=== PATIENT | female | born 1965 | race Caucasian/White ===

== ENCOUNTER → 2017-08-21 | Outpatient (CLI) | payer MEDICAID ==
[~2017-08-21] MED LIST: AMOX/CLAV POT 81 TAB PO; ATENOLOL25 M1 PO; DARVOCET-N 1001 EACH PO; DIPROLENE AF0.05% TP; DURAGESIC 50MC50 MCG TD; DURAGESIC100 MCG/HR TD; FIORINAL 325 MG1 TAB PO; HYDROCHLOROTHIA25 M1 PO; KEFLEX 500MG.500 MG PO; LISINOPRIL 20MG20 MG PO; METHADONE10 MG PO; METOPROLOL25 MG PO; MULTIVITAMIN1 TA1 PO; NAPROSYN 375MG375 MG PO; NITROGLYCERIN0.4 MG SL; NORVASC 10MG. T10 MG PO; OMEPRAZOLE20 MG PO; OXYCODONE5 MG PO; OXYCONTIN 10MG10 MG PO; Oxycodone5 MG NG; Oxycodone5 MG PO; PROAIR HFA0.09 MG/AC IH; PROMETHAZINE25 M1 PO; VALIUM 10MG TAB10 MG PO; ZITHROMAX Z PA250 MG PO
--- NOTE | 2017-08-21 11:32 | RADIOLOGY REPORT PS360 ---
SPINE ENTIRE 2-3 VW SCOLIOSIS CLINICAL INDICATION: KYPHOSCOLIOSIS ORDERING PHYSICIAN: GIANA MERIDA APRN PATIENT AGE: 51 years COMPARISON: 10/27/2016 FINDINGS: There is mild lower thoracic scoliosis convex right along with mild lumbar scoliosis convex left. There is 6 mm right lateral translation of L2 on L3 and 5 mm right lateral translation of L3 on L4.. There is multilevel degenerative disc disease in the thoracic lumbar spine. There is 6 mm retrolisthesis of L3 on L4 with degenerative disc disease from L2 to S1 and mildly prominent posterior bridging osteophytes at L2-L3 and L3-L4. There is moderate to severe thoracic kyphosis. No acute fracture apparent. No significant change from the previous exam. IMPRESSION: Thoracolumbar kyphoscoliosis with degenerative disc disease as detailed above not significant changed
== END ==
LOC: RAD 09:36
DX: M41.9 Scoliosis, unspecified (principal); M54.2 Cervicalgia; M54.6 Pain in thoracic spine; M54.5 Low back pain

== ENCOUNTER → 2017-08-21 | Outpatient (CLI) | payer MEDICAID ==
[2017-08-21 11:14] LABS: BUN 14 mg/dL (7-18)
[2017-08-21 11:15] LABS: GFR (ESTIMATED) 88 ML/MIN (59-)
== END ==
LOC: LAB 09:28
PROVIDERS: Nurse Practitioner Family
DX: Z00.00 Encounter for general adult medical examination without abnormal findings (principal); M41.9 Scoliosis, unspecified

== ENCOUNTER → 2017-09-14 | Outpatient (CLI) | payer MEDICAID ==
[2017-09-14 11:46] LABS: AMPHETAMINES/METAMPHETAMINES NEGATIVE ng/mL (<1000)
[2017-09-22 10:36] LABS: Opiates Negative (Cutoff=100)
== END ==
LOC: LAB 10:15
PROVIDERS: Anesthesiology
DX: Z79.899 Other long term (current) drug therapy (principal)